=== PATIENT | male | born 1995 | race African-American/Black ===

== ENCOUNTER 2021-04-11 10:51 | Emergency (ER) | payer MEDICAID, OTHER ==
[~2021-04-11] VITALS: Ht 177.8 cm; Wt 75.0 kg
[2021-04-11] MEDS ORDERED: IBUP-2029 MT (11:56)
[2021-04-11] MEDS ORDERED: AMOX-424 MT (11:56)
[2021-04-11] MEDS ORDERED: IBUPROFEN 600MG TABLET PO ONE (12:15)
[2021-04-11 12:19] VITALS: BP 125/65
== END 2021-04-11 12:20 | disposition home or self-care (01) ==
LOC: ER 10:51
DX: J01.80 Other acute sinusitis (principal); Z90.89 Acquired absence of other organs
CPT/HCPCS: 99283

== ENCOUNTER 2021-05-21 02:44 | Emergency (ER) | payer MEDICAID ==
[~2021-05-21] VITALS: Ht 177.8 cm; Wt 75.0 kg
[~2021-05-21 02:44] MED LIST: AMOX-424 MT; IBUP-2029 MT
[2021-05-21 02:54] VITALS: BP 134/85
[2021-05-21] MEDS ORDERED: FLUT9.9S BOTHNSTRLS (03:22)
[2021-05-21] MEDS ORDERED: IBUP-2029 MT (03:22)
[2021-05-21] MEDS ORDERED: AMOX-424 MT (03:22)
== END 2021-05-21 03:46 | disposition home or self-care (01) ==
LOC: ER 02:44
DX: J01.90 Acute sinusitis, unspecified (principal); J33.9 Nasal polyp, unspecified; R03.0 Elevated blood-pressure reading, without diagnosis of hypertension
CPT/HCPCS: 99283

== ENCOUNTER 2021-10-04 13:38 | Emergency (ER) | payer MEDICAID ==
[~2021-10-04] VITALS: Ht 177.8 cm; Wt 75.0 kg
[~2021-10-04 13:38] MED LIST changes: +FLUT9.9S BOTHNSTRLS
[2021-10-04 13:56] VITALS: BP 114/61
[2021-10-05] MEDS ORDERED: DIPH25CA2 PO (11:55)
[2021-10-05] MEDS ORDERED: NAPR-681 PO (13:37)
== END 2021-10-04 18:30 | disposition left against medical advice (07) ==
LOC: ER 13:38
DX: Z53.21 Procedure and treatment not carried out due to patient leaving prior to being seen by health care provider (principal)

== ENCOUNTER 2021-10-05 11:32 | Emergency (ER) | payer MEDICAID ==
[~2021-10-05] VITALS: Ht 177.8 cm; Wt 75.0 kg
[2021-10-05] MEDS ORDERED: DIPH25CA2 PO (11:55)
[2021-10-05] MEDS ORDERED: NAPR-681 PO (13:37)
[2021-10-05 13:53] VITALS: BP 118/77
== END 2021-10-05 13:54 | disposition home or self-care (01) ==
LOC: ER 12:04
DX: B08.4 Enteroviral vesicular stomatitis with exanthem (principal)
CPT/HCPCS: 99282